=== PATIENT | female | born 1980 | race Caucasian/White ===

== ENCOUNTER 2016-09-21 10:27 | Emergency (ER) | payer OTHER ==
[~2016-09-21] VITALS: Ht 160 cm; Wt 63.0 kg
[~2016-09-21 10:27] MED LIST: ATEN-102 PO; IBUP-238 PO; IBUP800T23 PO; METH500T3 PO; METH750T2 PO; SERT100 PO
[2016-09-21 10:40] VITALS: BP 125/88; PULSE 81; RESP 16; TEMP 97.6; O2SAT 98
[2016-09-21] MEDS ORDERED: SODIUM CHLOR 0.9% 1000 ML INJ 1,000 ML IV SCH (11:08)
[2016-09-21 11:11] LABS: BLOOD, URINE LARGE (NEG); GLUCOSE,URINE NEG (NEG); KETONE, URINE NEG (NEG); NITRITE,URINE NEG (NEG)
[2016-09-21] MEDS ORDERED: KETOROLAC TROMETHAMINE 30 MG/ML (IVP) VIAL IVP ONE (11:15)
[2016-09-21] MEDS ORDERED: ONDANSETRON HCL 4 MG/2 ML VIAL IVP ONE (11:15)
[2016-09-21] MEDS ORDERED: SODIUM CHLORIDE 0.9% FLUSH 10 ML FLUSH IV FLUSH PRN (11:15)
--- NOTE | 2016-09-21 11:16 | PD ---
HPI Chief Complaint: Flank/Kidney Pain Time Seen by Provider: 11:02 Travel History International Travel<30 days: No Contact w/Intl Traveler<30days: No Traveled to known affect area: No History of Present Illness HPI So 36 year-old woman who presents to the emergency room with abrupt onset of severe right flank pain. She has been feeling a little bit poorly recently. Her best friend just a few days ago. She's had some diarrhea that she treated to just not eating and stress. While at work today she had the abrupt onset of severe right flank pain. She describes It kicked in the flank. Symptoms were persistent since that time. She's had nausea but no vomiting. She is not noticed any urinary changes. She is on her menstrual cycle now. No abnormal vaginal discharge. No other complaints. She has no history of kidney stones. Only abdominal surgeries were 2 previous C-sections. History Past Medical History Narrative Medical Hypertension Anxiety/depression Influenza Vaccination: No Social History Alcohol Use: Yes (Occ.) Tobacco Use: Yes (1/2 ppd) Allergies-Medications (Allergen,Severity, Reaction): Coded Allergies: No Known Allergies (Unverified , 09/21/16) Reported Meds & Prescriptions Reported Meds & Active Scripts Active Motrin (Ibuprofen) 800 Mg Tab 800 Mg PO Q8 PRN Robaxin (Methocarbamol) 750 Mg Tab 750 Mg PO Q6HR PRN Robaxin (Methocarbamol) 500 Mg Tab 500 Mg PO QID PRN Ibuprofen 800 Mg Tab 800 Mg PO Q6H PRN Reported Zoloft (Sertraline HCl) 100 Mg Tab 150 Mg PO DAILY Atenolol 50 Mg Tab 50 Mg PO DAILY Review of Systems Except as stated in HPI: all other systems reviewed are Neg Physical Exam Narrative GENERAL: 36 year-old woman, appears uncomfortable, nontoxic. SKIN: Focused skin assessment warm/dry. NECK: Trachea midline. No JVD. CARDIOVASCULAR: Regular rate and rhythm. No murmur appreciated. RESPIRATORY: No accessory muscle use. Clear to auscultation. Breath sounds equal bilaterally. GASTROINTESTINAL: Abdomen soft, non-tender, nondistended. No right upper quadrant tenderness. Negative Tobar's. Hepatic and splenic margins not palpable. MUSCULOSKELETAL: No obvious deformities. No edema. NEUROLOGICAL: Awake and alert. No obvious cranial nerve deficits. Motor grossly within normal limits. Normal speech. PSYCHIATRIC: Appropriate mood and affect; insight and judgment normal. Data Data Last Documented VS Vital Signs Date Time Temp Pulse Resp B/P Pulse Ox O2 Delivery O2 Flow Rate FiO2 09/21/16 10:40 97.6 81 16 125/88 98 Orders Urinalysis - C+S If Indicated (09/21/16 10:42) Complete Blood Count With Diff (09/21/16 11:08) Comprehensive Metabolic Panel (09/21/16 11:08) Lipase (09/21/16 11:08) Ct Abd/Pel W/O Iv Contrast (09/21/16 11:08) Iv Access Insert/Monitor (09/21/16 11:08) Ondansetron Inj (Zofran Inj) (09/21/16 11:15) Sodium Chlor 0.9% 1000 Ml Inj (Ns 1000 M (09/21/16 11:08) Sodium Chloride 0.9% Flush (Ns Flush) (09/21/16 11:15) Ketorolac Inj (Toradol Inj) (09/21/16 11:15) Morphine Inj (Morphine Inj) (09/21/16 12:00) Labs Laboratory Tests Test 09/21/16 09/21/16 10:45 11:15 Urine Collection Type CLEAN CATCH Urine Color YELLOW Urine Turbidity CLEAR Urine pH 6.0 Urine Specific [place] 1.021 Urine Protein TRACE mg/dL Urine Glucose (UA) NEG mg/dL Urine Ketones NEG mg/dL Urine Occult Blood LARGE Urine Nitrite NEG Urine Bilirubin NEG Urine Leukocyte Esterase NEG Urine RBC 15-19 /hpf Urine Squamous Epithelial 6-8 /hpf Cells Urine Calcium Oxalate Crystals FEW /hpf Urine Mucus FEW /lpf Microscopic Urinalysis Comment CULT NOT INDICATED Urine Collection Time 10:45 White Blood Count 5.9 TH/MM3 Red Blood Count 3.99 MIL/MM3 Hemoglobin 11.5 GM/DL Hematocrit 34.2 % Mean Corpuscular Volume 85.7 FL Mean Corpuscular Hemoglobin 28.9 PG Mean Corpuscular Hemoglobin 33.7 % Concent Red Cell Distribution Width 13.5 % Platelet Count 227 TH/MM3 Mean Platelet Volume 8.4 FL Neutrophils (%) (Auto) 54.7 % Lymphocytes (%) (Auto) 31.9 % Monocytes (%) (Auto) 6.1 % Eosinophils (%) (Auto) 5.5 % Basophils (%) (Auto) 1.8 % Neutrophils # (Auto) 3.2 TH/MM3 Lymphocytes # (Auto) 1.9 TH/MM3 Monocytes # (Auto) 0.4 TH/MM3 Eosinophils # (Auto) 0.3 TH/MM3 Basophils # (Auto) 0.1 TH/MM3 CBC Comment DIFF FINAL Differential Comment Sodium Level 143 MEQ/L Potassium Level 3.3 MEQ/L Chloride Level 107 MEQ/L Carbon Dioxide Level 27.6 MEQ/L Anion Gap 8 MEQ/L Blood Urea Nitrogen 6 MG/DL Creatinine 0.75 MG/DL Estimat Glomerular Filtration 88 ML/MIN Rate Random Glucose 92 MG/DL Calcium Level 8.6 MG/DL Total Bilirubin 0.3 MG/DL Aspartate Amino Transf 8 U/L (AST/SGOT) Alanine Aminotransferase 17 U/L (ALT/SGPT) Alkaline Phosphatase 28 U/L Total Protein 7.7 GM/DL Albumin 3.9 GM/DL Lipase 151 U/L MDM Medical Decision Making Medical Screen Exam Complete: Yes Emergency Medical Condition: Yes Interpretation(s) LABS: CBC remarkable for mild anemia. CMP is generally unremarkable. Lipases normal UA with hematuria CT abdomen and pelvis: Nonobstructing left renal stones. Lumbosacral spondylolisthesis. Differential Diagnosis Renal stone, choledocholithiasis, cholecystitis, pancreatitis, , other Narrative Course Medical decision making INITIAL: 36 year-old woman with abrupt onset of right flank pain. Suggestive of renal lithiasis. We'll check labs, urine, CT, reassess. FINAL: CT scan without any definite etiology. UA shows blood but she is on her menstrual cycle. I think this is likely 1 of 2 things, either she has a kidney stone on the right that she is or has passed, or she may have shingles that isn' t yet evident. Recommend supportive treatment. I discussed this with her, she' ll follow-up with her doctor if she is worsening symptoms. I don't think she has cholecystitis, I don't think that she has appendicitis. Diagnosis Primary Impression: Right flank pain Additional Instructions: Take Naprosyn and Lortab as needed for pain. Take Zofran as needed for nausea or vomiting. Return to the emergency department for any worsening pain, high fevers, or any other new or worsening symptoms. Follow-up your primary doctor on Monday if he develop a rash, or if you're not completely well. Med/Other Pt SpecificInfo: Prescription(s) given Scripts Hydrocodone-Acetaminophen (Lortab)5-325 Mg Tab1-2 Tab PO Q6H PRN (PAIN) #12 TAB Prov:Eriberto Shin MD 09/21/16 Naproxen (Naprosyn)500 Mg Nbs441 Mg PO BID PRN (PAIN SCALE 1 TO 10) #20 TAB Prov:Eriberto Shin MD 09/21/16 Ondansetron Odt (Zofran Odt)4 Mg Tab4 Mg SL Q8HR PRN (Nausea/Vomiting) #15 TAB May substitute non-ODT form. Prov:Eriberto Shin MD 09/21/16 Eriberto Shin MD Sep 21, 2016 11:16
[2016-09-21 11:19] LABS: METHOD OF COLLECTION CLEAN CATCH; MUCUS URINE FEW /lpf (OCC); URINE COLOR YELLOW (YELLW/STRAW)
[2016-09-21 11:20] LABS: CALCIUM OXALATE CRYSTALS,URINE FEW /hpf; COMMENT (UR) CULT NOT INDICATED; CULTURE IF INDICATED CULT NOT INDICATED; RBC, URINE 15-19 /hpf (0-3)
[2016-09-21 11:35] LABS: AUTOMATED NEUTROPHIL # 3.2 TH/MM3 (1.8-7.7); BASOPHIL # 0.1 TH/MM3 (0-0.2); BASOPHIL % 1.8 % (0.0-2.0); EOSINOPHIL # 0.3 TH/MM3 (0-0.4); EOSINOPHIL % 5.5 % (0.0-4.0); HEMATOCRIT 34.2 % (35.0-46.0); HEMO FLAGS DIFF FINAL; LYMPH % 31.9 % (9.0-44.0); LYMPHOCYTE # 1.9 TH/MM3 (1.0-4.8); MEAN CELL VOLUME 85.7 FL (80.0-100.0); MEAN CORPUSCULAR HEMOGLOBIN 28.9 PG (27.0-34.0); MEAN CORPUSCULAR HGB CONC 33.7 % (32.0-36.0); MONO % 6.1 % (0.0-8.0); NEUT % 54.7 % (16.0-70.0); PLATELET COUNT 227 TH/MM3 (150-450); RED BLOOD COUNT 3.99 MIL/MM3 (4.00-5.30); RED CELL DISTRIBUTION WIDTH 13.5 % (11.6-17.2); WHITE BLOOD COUNT 5.9 TH/MM3 (4.0-11.0)
[2016-09-21 11:49] LABS: CHLORIDE 107 MEQ/L (98-107); POTASSIUM 3.3 MEQ/L (3.5-5.1); SODIUM (NA) 143 MEQ/L (136-145)
--- NOTE | 2016-09-21 11:53 | RADHPO ---
EXAM DATE/TIME: 09/21/2016 11:28 [facility] COMPARISON: No previous studies available for comparison. INDICATIONS : Right flank pain. ORAL CONTRAST: No oral contrast ingested. RADIATION DOSE: 9.00 CTDIvol (mGy) MEDICAL HISTORY : smoker, 2 C sections SURGICAL HISTORY : Essure, permanent control system ENCOUNTER: Initial ACUITY: 1 day PAIN SCALE: 4/10 LOCATION: Right flank TECHNIQUE: Volumetric scanning of the abdomen and pelvis was performed. Using automated exposure control and ad justment of the mA and/or kV according to patient size, radiation dose was kept as low as reasonably achievable to obtain optimal diagnostic quality images. FINDINGS: LOWER LUNGS: The visualized lower lungs are clear. LIVER: Visualized portions grossly unremarkable for noncontrast. SPLEEN: Visualized portions grossly unremarkable for noncontrast PANCREAS: Within normal limits. KIDNEYS: 6 mm nonobstructing stone in the upper pole posterior collecting system of the left kidney and adjace nt miniscule calcification. No stones are seen on the right. No evidence of hydronephrosis. No stones along the course of the ureters. ADRENAL GLANDS: Within normal limits. VASCULAR: There is no aortic aneurysm. BOWEL/MESENTERY: The stomach, small bowel, and colon demonstrate no acute abnormality. There is no free intraperitone al air or fluid. ABDOMINAL WALL: Within normal limits. RETROPERITONEUM: There is no lymphadenopathy. BLADDER: No wall thickening or mass. REPRODUCTIVE: Within normal limits. INGUINAL: There is no lymphadenopathy or hernia. MUSCULOSKELETAL: Chronic lumbosacral spondylolisthesis with bilateral spondylolyses. Degenerative changes. CONCLUSION: Nonobstructing left renal stones. Lumbosacral spondylolisthesis. Boyd Pruitt MD on September 21, 2016 at 11:47 Board Certified Radiologist. This report was verified electronically.
[2016-09-21 11:54] LABS: ANION GAP 8 MEQ/L (5-15); BICARBONATE 27.6 MEQ/L (21.0-32.0); BLOOD UREA NITROGEN 6 MG/DL (7-18)
[2016-09-21 11:57] LABS: ALT (GPT) 17 U/L (10-53); AST (GOT) 8 U/L (15-37); GLOMERULAR FILTRATION RATE 88 ML/MIN (>89)
[2016-09-21 11:59] LABS: TOTAL BILIRUBIN ADULT 0.3 MG/DL (0.2-1.0)
[2016-09-21 12:00] LABS: ALKALINE PHOSPHATASE 28 U/L (45-117)
[2016-09-21] MEDS ORDERED: MORPHINE SULFATE 4 MG/ML INJ IV PUSH ONE (12:00)
[2016-09-21] MEDS ORDERED: ZOFR4TAB3 SL (12:17)
[2016-09-21] MEDS ORDERED: HYDR-3533 PO (12:17)
[2016-09-21] MEDS ORDERED: NAPR500 PO (12:17)
== END 2016-09-21 12:38 | disposition home or self-care (01) ==
LOC: PHED 10:27
DX: R10.31 Right lower quadrant pain (principal); I10 Essential (primary) hypertension; F17.210 Nicotine dependence, cigarettes, uncomplicated
CPT/HCPCS: 74176; 80053; 81001; 83690; 85025; 96361; 96374; 96375; 99284; J1885; J2270; J2405; J7030

== ENCOUNTER 2016-12-16 14:39 | Emergency (ER) | payer OTHER ==
[~2016-12-16] VITALS: Ht 160 cm; Wt 59.0 kg
[~2016-12-16 14:39] MED LIST changes: +HYDR-3533 PO; +NAPR500 PO; +ZOFR4TAB3 SL
[2016-12-16 14:42] VITALS: BP 135/100; PULSE 81; RESP 15; TEMP 98.3; O2SAT 98
[2016-12-16] MEDS ORDERED: SODIUM CHLOR 0.9% 1000 ML INJ 1,000 ML IV SCH (14:51)
[2016-12-16] MEDS ORDERED: ATEN50TA PO (14:55)
[2016-12-16] MEDS ORDERED: ALPR.5 PO (14:55)
[2016-12-16] MEDS ORDERED: ZOLO50TA PO (14:55)
--- NOTE | 2016-12-16 14:57 | PD ---
HPI Chief Complaint: GI Complaint Time Seen by Provider: 14:47 Travel History International Travel<30 days: No Contact w/Intl Traveler<30days: No Traveled to known affect area: No History of Present Illness HPI 36-year-old female here for evaluation of nausea, vomiting, and diarrhea. She reports symptoms of it going on for the last week. She states that every time she tries to eat or drink something she vomits almost immediately afterwards. She is unsure if there is blood in her stool. She is having some intermittent abdominal pain/cramping. History of section 2 as well as bilateral tubal ligation. She is not sure if she has had any fevers, but has had chills. No recent travel. No sick contacts. PFSH Past Medical History Anxiety: Yes Depression: Yes Diminished Hearing: No Hypertension: Yes ?: Not Tubal Ligation: Yes Past Surgical History Section: Yes (X's 2) Other Surgery: Yes ("Assure" metal coils placed) Social History Alcohol Use: Yes (Occ.) Tobacco Use: Yes (1/2 ppd) Substance Use: No Allergies-Medications (Allergen,Severity, Reaction): Coded Allergies: No Known Allergies (Unverified , 12/16/16) Reported Meds & Prescriptions Reported Meds & Active Scripts Active Reported Xanax (Alprazolam) 0.5 Mg Tab 0.5 Mg PO Q8H PRN Zoloft (Sertraline HCl) 50 Mg Tab 50 Mg PO HS Atenolol 50 Mg Tab 50 Mg PO DAILY Review of Systems Except as stated in HPI: all other systems reviewed are Neg Physical Exam Narrative GENERAL: Well-developed, well-nourished, comfortable, no acute distress. SKIN: Focused skin assessment warm/dry. No rash. No pallor. HEAD: Atraumatic. Normocephalic. EYES: Pupils equal and round. No scleral icterus. No injection or drainage. ENT: No nasal bleeding or discharge. Mucous membranes pink and dry. NECK: Trachea midline. No JVD. CARDIOVASCULAR: Regular rate and rhythm. RESPIRATORY: No accessory muscle use. Clear to auscultation. Breath sounds equal bilaterally. GASTROINTESTINAL: Abdomen soft, nondistended. Mild left lower quadrant tenderness without peritoneal signs. Rest of abdomen is soft and nontender. Normal bowel sounds. No hernias. MUSCULOSKELETAL: No obvious deformities. No clubbing. No cyanosis. No edema. NEUROLOGICAL: Awake and alert. No obvious cranial nerve deficits. Motor grossly within normal limits. Normal speech. PSYCHIATRIC: Appropriate mood and affect; insight and judgment normal. Data Data Last Documented VS Vital Signs Date Time Temp Pulse Resp B/P Pulse Ox O2 Delivery O2 Flow Rate FiO2 12/16/16 14:42 98.3 81 15 135/100 98 Orders Beta Hcg (Quant/Titer) (12/16/16 14:51) Complete Blood Count With Diff (12/16/16 14:51) Comprehensive Metabolic Panel (12/16/16 14:51) Lipase (12/16/16 14:51) Iv Access Insert/Monitor (12/16/16 14:51) Ecg Monitoring (12/16/16 14:51) Oximetry (12/16/16 14:51) Ondansetron Inj (Zofran Inj) (12/16/16 15:00) Sodium Chlor 0.9% 1000 Ml Inj (Ns 1000 M (12/16/16 14:51) Sodium Chloride 0.9% Flush (Ns Flush) (12/16/16 15:00) Labs Laboratory Tests Test 12/16/16 15:00 White Blood Count 5.6 TH/MM3 Red Blood Count 4.36 MIL/MM3 Hemoglobin 12.1 GM/DL Hematocrit 36.6 % Mean Corpuscular Volume 84.0 FL Mean Corpuscular Hemoglobin 27.9 PG Mean Corpuscular Hemoglobin 33.2 % Concent Red Cell Distribution Width 13.6 % Platelet Count 268 TH/MM3 Mean Platelet Volume 8.2 FL Neutrophils (%) (Auto) 56.7 % Lymphocytes (%) (Auto) 34.5 % Monocytes (%) (Auto) 6.2 % Eosinophils (%) (Auto) 1.5 % Basophils (%) (Auto) 1.1 % Neutrophils # (Auto) 3.2 TH/MM3 Lymphocytes # (Auto) 1.9 TH/MM3 Monocytes # (Auto) 0.3 TH/MM3 Eosinophils # (Auto) 0.1 TH/MM3 Basophils # (Auto) 0.1 TH/MM3 CBC Comment DIFF FINAL Differential Comment Sodium Level 142 MEQ/L Potassium Level 3.6 MEQ/L Chloride Level 107 MEQ/L Carbon Dioxide Level 27.6 MEQ/L Anion Gap 7 MEQ/L Blood Urea Nitrogen 5 MG/DL Creatinine 0.77 MG/DL Estimat Glomerular Filtration 86 ML/MIN Rate Random Glucose 86 MG/DL Calcium Level 9.0 MG/DL Total Bilirubin 0.4 MG/DL Aspartate Amino Transf 12 U/L (AST/SGOT) Alanine Aminotransferase 19 U/L (ALT/SGPT) Alkaline Phosphatase 37 U/L Total Protein 7.8 GM/DL Albumin 4.1 GM/DL Lipase 119 U/L Human Chorionic Gonadotropin, LESS THAN 1 Quant MIU/ML MDM Medical Decision Making Medical Screen Exam Complete: Yes Emergency Medical Condition: Yes Medical Record Reviewed: Yes Differential Diagnosis Gastroenteritis, dehydration, metabolic abnormality, UTI, cystitis Narrative Course Vital signs show heart rate 81, blood pressure 135/100, pulse ox 98% on room air , oral temp of 98.3F. CBC is unremarkable. CMP is unremarkable. Lipase is 119. Beta hCG is negative. Patient was given a liter normal saline IV and IV Zofran and is tolerating clear liquids in the emergency department. She was made aware of all findings. She is likely suffering from a viral gastroenteritis. I do not believe that there is an acute intra-abdominal process to warrant CT or further imaging at this time. She is stable for discharge home with outpatient follow-up with a primary care physician this week. She was informed on when to return to the emergency department. She verbalizes understanding and agreement with plan. Diagnosis Primary Impression: Gastroenteritis Referrals: Primary Care Physician 3 days Additional Instructions: Follow-up with a primary care physician this week. Stay hydrated with plenty of fluids. Return to the emergency department for worsening symptoms or any other concerns. Scripts Ondansetron Odt (Zofran Odt)4 Mg Tab4 Mg SL Q6HR PRN (Nausea/Vomiting) #30 TAB Ref 0 Prov:Berlin Chapa MD 12/16/16 Disposition: DISCHARGE HOME Condition: Stable Berlin Chapa MD Dec 16, 2016 14:57
[2016-12-16] MEDS ORDERED: ONDANSETRON HCL 4 MG/2 ML VIAL IVP ONE (15:00)
[2016-12-16] MEDS ORDERED: SODIUM CHLORIDE 0.9% FLUSH 10 ML FLUSH IV FLUSH PRN (15:00)
[2016-12-16 15:21] LABS: AUTOMATED NEUTROPHIL # 3.2 TH/MM3 (1.8-7.7); BASOPHIL # 0.1 TH/MM3 (0-0.2); BASOPHIL % 1.1 % (0.0-2.0); EOSINOPHIL # 0.1 TH/MM3 (0-0.4); EOSINOPHIL % 1.5 % (0.0-4.0); HEMATOCRIT 36.6 % (35.0-46.0); HEMO FLAGS DIFF FINAL; LYMPH % 34.5 % (9.0-44.0); LYMPHOCYTE # 1.9 TH/MM3 (1.0-4.8); MEAN CORPUSCULAR HEMOGLOBIN 27.9 PG (27.0-34.0); MEAN CORPUSCULAR HGB CONC 33.2 % (32.0-36.0); MONO % 6.2 % (0.0-8.0); NEUT % 56.7 % (16.0-70.0); PLATELET COUNT 268 TH/MM3 (150-450); RED BLOOD COUNT 4.36 MIL/MM3 (4.00-5.30); RED CELL DISTRIBUTION WIDTH 13.6 % (11.6-17.2); WHITE BLOOD COUNT 5.6 TH/MM3 (4.0-11.0)
[2016-12-16 15:35] LABS: CHLORIDE 107 MEQ/L (98-107); POTASSIUM 3.6 MEQ/L (3.5-5.1); SODIUM (NA) 142 MEQ/L (136-145)
[2016-12-16 15:40] LABS: ANION GAP 7 MEQ/L (5-15); BICARBONATE 27.6 MEQ/L (21.0-32.0)
[2016-12-16 15:41] LABS: BLOOD UREA NITROGEN 5 MG/DL (7-18)
[2016-12-16 15:43] LABS: ALT (GPT) 19 U/L (10-53); AST (GOT) 12 U/L (15-37); GLOMERULAR FILTRATION RATE 86 ML/MIN (>89)
[2016-12-16 15:45] LABS: TOTAL BILIRUBIN ADULT 0.4 MG/DL (0.2-1.0)
[2016-12-16 15:46] LABS: ALKALINE PHOSPHATASE 37 U/L (45-117)
[2016-12-16 15:49] LABS: BETA HCG QUANT LESS THAN 1 MIU/ML (0-5)
[2016-12-16] MEDS ORDERED: ZOFR4TAB3 SL (15:59)
[2016-12-16 16:43] LABS: BLOOD, URINE NEG (NEG); GLUCOSE,URINE NEG (NEG); KETONE, URINE NEG (NEG); NITRITE,URINE NEG (NEG); PH, URINE 6.5 (5.0-8.5)
[2016-12-16 16:49] LABS: URINE COLOR STRAW (YELLW/STRAW)
[2016-12-16 16:50] LABS: COMMENT (UR) CULT NOT INDICATED; CULTURE IF INDICATED CULT NOT INDICATED; SQUAMOUS EPITHELIAL CELL URINE 0-5 /hpf (0-5); WBC, URINE 0-2 /hpf (0-5)
== END 2016-12-16 17:08 | disposition home or self-care (01) ==
LOC: PHED 14:39
DX: K52.9 Noninfective gastroenteritis and colitis, unspecified (principal); I10 Essential (primary) hypertension; F17.210 Nicotine dependence, cigarettes, uncomplicated
CPT/HCPCS: 80053; 81001; 83690; 84702; 85025; 96374; 96375; 99284; J2405; J7030

== ENCOUNTER 2017-02-14 20:26 | Emergency (ER) | payer SELFPAY ==
[~2017-02-14] VITALS: Ht 160 cm; Wt 59.0 kg
[~2017-02-14 20:26] MED LIST changes: +ALPR.5 PO; -ATEN-102 PO; +ATEN50TA PO; -HYDR-3533 PO; -IBUP-238 PO; -IBUP800T23 PO; -METH500T3 PO; -METH750T2 PO; -NAPR500 PO; -SERT100 PO; +ZOLO50TA PO
[2017-02-14 20:33] VITALS: BP 130/64; PULSE 72; RESP 20; TEMP 98.4
[2017-02-14] MEDS ORDERED: predniSONE 50 MG TAB PO ONE (21:45)
[2017-02-14] MEDS ORDERED: KETOROLAC TROMETHAMINE 60 MG/2 ML (IM) VIAL IM ONE (21:45)
[2017-02-14] MEDS ORDERED: ACETAMINOPHEN/HYDROcodone 325 MG/5 MG TAB PO ONE (21:45)
--- NOTE | 2017-02-14 21:54 | PD ---
HPI Chief Complaint: Back/ Neck Pain or Injury Time Seen by Provider: 21:30 Travel History International Travel<30 days: No Contact w/Intl Traveler<30days: No Traveled to known affect area: No History of Present Illness HPI 36-year-old female here for evaluation of left lower back pain. The patient reports history of herniated disks in her lower spine. She states that [place] when [place] her [place]. Symptoms seemed to improve yesterday evening, however today throughout the day and progressively worsen. Her pain is mainly over her left lower back. There is no midline pain. Pain is moderate, worse with movement and palpation. No paresthesias or motor deficits. No urinary or bowel incontinence or retention. No fevers. No IVDU. PFSH Past Medical History Anxiety: Yes Depression: Yes Cardiovascular Problems: Yes (HTN) Diminished Hearing: No Hypertension: Yes Medical other: Yes (CHRONIC BACK PAIN) Tetanus Vaccination: > 5 Years Influenza Vaccination: No ?: Not LMP: 2 wks ago Tubal Ligation: Yes Past Surgical History Section: Yes (X's 2) Other Surgery: Yes ("Assure" metal coils placed) Social History Alcohol Use: Yes (Occ.) Tobacco Use: Yes (1/2 ppd) Substance Use: No Allergies-Medications (Allergen,Severity, Reaction): Coded Allergies: No Known Allergies (Unverified , 02/14/17) Reported Meds & Prescriptions Reported Meds & Active Scripts Active Reported Xanax (Alprazolam) 0.5 Mg Tab 0.5 Mg PO Q8H PRN Zoloft (Sertraline HCl) 50 Mg Tab 50 Mg PO HS Atenolol 50 Mg Tab 50 Mg PO DAILY Review of Systems Except as stated in HPI: all other systems reviewed are Neg Physical Exam Narrative GENERAL: Well-developed, well-nourished, comfortable, no apparent distress. SKIN: Focused skin assessment warm/dry. HEAD: Atraumatic. Normocephalic. EYES: Pupils equal and round. No scleral icterus. No injection or drainage. ENT: Mucous membranes pink and moist. NECK: Trachea midline. No JVD. CARDIOVASCULAR: Regular rate and rhythm. RESPIRATORY: No accessory muscle use. Clear to auscultation. Breath sounds equal bilaterally. MUSCULOSKELETAL: No obvious deformities. No clubbing. No cyanosis. No edema. Normal range of motion in bilateral lower extremities. No midline vertebral step-off or tenderness. There is moderate tenderness at the left SI joint. NEUROLOGICAL: Awake and alert. No obvious cranial nerve deficits. Motor grossly within normal limits. Normal speech. Normal muscle strength in flexion and extension of bilateral lower extremities at the hip, knee, and ankle. Brisk patellar tendon reflexes bilaterally. No saddle anesthesia. PSYCHIATRIC: Appropriate mood and affect; insight and judgment normal. Data Data Last Documented VS Vital Signs Date Time Temp Pulse Resp B/P (MAP) Pulse Ox O2 Delivery O2 Flow Rate FiO2 02/14/17 20:33 98.4 72 20 130/64 (86) Orders Orders Spine, Lumbar Comp W/Obliq (02/14/17 ) Pelvis, Ap Only (Routine) (02/14/17 ) Ketorolac Inj (Toradol Inj) (02/14/17 21:45) Prednisone (Deltasone) (02/14/17 21:45) Acetamin-Hydrocod 325-5 Mg ([place] 5-325 (02/14/17 21:45) MDM Medical Decision Making Medical Screen Exam Complete: Yes Emergency Medical Condition: Yes Differential Diagnosis Low back strain, vertebral injury less likely Narrative Course Vital signs are within normal limits. Pelvis x-ray shows no acute findings. Lumbar spine x-ray: Grade 1 anterolisthesis of L5 on S1 with bilateral spondylolysis or pars defects. No acute fracture. The patient was given IM Toradol and oral Lortab as well as a 50 mg dose of oral prednisone and is feeling improved. She is not displaying any red flags for low back pain. She has been seen by pain management in the past for low back pain. At this point she is stable for discharge home with outpatient follow-up with her primary care physician this week. She will be discharged home with prednisone, muscle relaxant, any pain medication. She was informed on when to return to the emergency department. She verbalizes understanding and agreement with plan. Diagnosis Primary Impression: Low back strain Qualified Codes: S39.012A - Strain of muscle, fascia and tendon of lower back , initial encounter Referrals: Primary Care Physician 3 days Additional Instructions: Follow-up with your primary care physician this week. Return to the emergency department for worsening symptoms or any other concerns. Scripts Hydrocodone-Acetaminophen (Lortab) 5-325 Mg Tab 1 TAB PO Q6H Y for PAIN, #10 TAB 0 Refills Prov: Berlin Chapa MD 02/14/17 Methocarbamol (Robaxin) 500 Mg Tab 500 MG PO TID for Muscle Spasm, #15 TAB 0 Refills Prov: Berlin Chapa MD 02/14/17 Prednisone (Prednisone) 50 Mg Tab 50 MG PO DAILY for 5 Days, TAB 0 Refills Prov: Berlin Chapa MD 02/14/17 Disposition: 01 DISCHARGE HOME Condition: Stable Berlin Chapa MD Feb 14, 2017 21:54
--- NOTE | 2017-02-14 22:34 | RADRPT ---
EXAM DATE/TIME: 02/14/2017 21:52 [facility] COMPARISON: No previous studies available for comparison. INDICATIONS : Lower back pain for 2 days. MEDICAL HISTORY : None. SURGICAL HISTORY : None. ENCOUNTER: Initial ACUITY: 2 days PAIN SCORE: 9/10 LOCATION: Lumbar. FINDINGS: No acute fracture. Grade 1 anterolisthesis of L5 on S1 with bilateral spondylolysis. Mild degenerativ e disease. Previous tubal procedure. CONCLUSION: 1. Grade 1 anterolisthesis of L5 on S1 with bilateral spondylolyses or pars defects. No acute fractur e. Aneudy Slade MD on February 14, 2017 at 22:31 Board Certified Radiologist. This report was verified electronically.
--- NOTE | 2017-02-14 22:35 | RADRPT ---
EXAM DATE/TIME: 02/14/2017 21:52 [facility] COMPARISON: No previous studies available for comparison. INDICATIONS : Lower back pain for 2 days. MEDICAL HISTORY : None. SURGICAL HISTORY : None. ENCOUNTER: Initial ACUITY: 2 days PAIN SCORE: 9/10 LOCATION: Sacrum. FINDINGS: A single frontal view of the pelvis demonstrates no evidence of fracture. The bony pelvic ring is in tact. Bony mineralization is normal. The soft tissues are intact. Previous tubal procedure. CONCLUSION: 1. No acute findings. Aneudy Slade MD on February 14, 2017 at 22:32 Board Certified Radiologist. This report was verified electronically.
[2017-02-14] MEDS ORDERED: PRED50 PO (22:52)
[2017-02-14] MEDS ORDERED: ROBA500T PO (22:52)
[2017-02-14] MEDS ORDERED: HYDR-3533 PO (22:52)
== END 2017-02-14 23:01 | disposition home or self-care (01) ==
LOC: PHEFT 20:26
DX: S39.012A Strain of muscle, fascia and tendon of lower back, initial encounter (principal); I10 Essential (primary) hypertension; F17.210 Nicotine dependence, cigarettes, uncomplicated; X58.XXXA Exposure to other specified factors, initial encounter; Y93.43 Activity, gymnastics; Y92.832 Beach as the place of occurrence of the external cause; Y99.8 Other external cause status
CPT/HCPCS: 72110; 72170; 96372; 99284; J1885; J7512